=== PATIENT | female | born 1945 | race Caucasian/White ===

== ENCOUNTER → 2017-10-12 | Outpatient (CLI) | payer MEDICARE ==
--- NOTE | 2017-10-12 17:18 | Diagnostic Imaging Report ---
Exam: Cervical spine MRI without IV contrast History: Neck pain with left greater than right arm pain. Comparison studies: None Technique: Sagittal and axial T2 and T1, sagittal STIR and axial T2*GRE. Intravenous contrast: None Findings: Alignment: Normal cervical lordosis. Mild degenerative anterolisthesis of C4 on C5 and retrolisthesis of C5 on C6. Cervicomedullary junction: No abnormalities. Patent foramen magnum. Soft tissues: No T2 hyperintense inflammatory changes. Spinal cord: Normal in size and signal from the foramen magnum through T1. Vertebrae: No fractures, infection or neoplasm. Degenerative changes: C2-C3: Patent canal and foramina. Left facet arthrosis with facet fusion. C3-C4: Patent canal and foramina. Left facet arthrosis with facet fusion. C4-C5: Mildly degenerated disc with loss of disc height and loss of T2 disc signal. Mild anterolisthesis of C4 on C5 with associated disc osteophyte complex and thickened ligamentum flavum result in mild canal stenosis. Moderate left and mild right foraminal stenosis due to asymmetric left disc osteophyte complex, uncovertebral arthrosis and left facet arthrosis. C5-C6: Mildly degenerated disc with loss of disc height loss of T2 disc signal. Minimal retrolisthesis of C5 on C6 with associated disc osteophyte complex and thickened ligamentum flavum result in mild canal stenosis. Mild/moderate bilateral foraminal stenosis due to disc osteophyte complex, uncovertebral arthrosis and right facet arthrosis. C6-C7: Disc osteophyte complex asymmetric to the left and uncovertebral arthrosis result in mild left foraminal stenosis. No significant canal or right foraminal stenosis. C7-T1: Patent canal and foramina. IMPRESSION: 1. Mild disc degeneration with mild degenerative canal stenosis at C4-C5 and at C5-C6. 2. Small disc osteophyte complex at C6-C7 without significant canal stenosis. 3. Degenerative foraminal stenosis, moderate left at C4-C5 and mild/moderate bilaterally at C5-C6. 4. 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 Signed by: Dr. Jose Carlos Shelton M.D. on 10/12/2017 5:14 PM
== END ==
LOC: MRI 08:15
PROVIDERS: ATTEND Internal Medicine Cardiovascular Disease
DX: G43.909 Migraine, unspecified, not intractable, without status migrainosus (principal); R26.89 Other abnormalities of gait and mobility
CPT/HCPCS: 72141; 95812

== ENCOUNTER 2025-02-11 10:59 | Outpatient (RCR) | payer MEDICARE | END 2025-02-16 | LOC: PT 10:59 | PROVIDERS: ATTEND Neurological Surgery | DX: M47.896 Other spondylosis, lumbar region (principal) ==

== ENCOUNTER 2025-03-30 15:06 | Inpatient (IN) | payer MEDICARE ==
[2025-03-30] VITALS (9 sets, daily range): BP systolic 118–132; BP diastolic 54–58; PULSE 81–122; RESP 16–27; TEMP 97.8–98.4; O2SAT 96–98
[~2025-03-30] VITALS: Ht 162.6 cm; Wt 55.8 kg
[2025-03-30] MEDS ORDERED: SODIUM CHLORIDE FLUSH 10 ML SYR IV PRN (16:00)
[2025-03-30 16:07] LABS: BASOPHILS % 0.3 % (0.0-1.0); EOSINOPHILS % 0.0 % (0.0-6.0); LYMPHOCYTES % 4.3 % (18.0-39.1); MONOCYTES % 3.8 % (4.4-11.3); NEUTROPHILS % 91.0 % (38.7-80.0); RED CELL DISTRIBUTION WIDTH 13.4 % (11.7-14.4)
[2025-03-30] MEDS: DILTIAZEM HCL 5 MG/ML 5 ML VIAL IV STA (16:16)
[2025-03-30 16:25] LABS: EST GLOMERULAR FILTRATION RATE 73.0 ML/MIN (>=60)
[2025-03-30] MEDS ORDERED: DILTIAZEM HCL IV SCH (16:30)
[2025-03-30] MEDS ORDERED: DILTIAZEM HCL 125 ML IV SCH (16:30)
[2025-03-30] MEDS: DILTIAZEM HCL IV SOLN 125 MG in SODIUM CHLORIDE 0.9% 100 ML IV SCH (16:58)
[2025-03-30] MEDS: SODIUM CHLORIDE 0.9% 1000ML 1,000 ML IV ONE ×2 (16:59→18:05)
[2025-03-30] MEDS: ENOXAPARIN SOD INJ 40 MG/0.4 ML SYR SC SCH (16:59)
[2025-03-30] MEDS: MUPIROCIN 2% OINT 22 GM TUBE TOP SCH (17:15)
[2025-03-30] MEDS ORDERED: SODIUM CHLORIDE FLUSH 10 ML SYR INJ PRN (17:15)
[2025-03-30] MEDS ORDERED: AMIODARONE 900MG 900 MG in Premix Bag 1 BAG IV SCH (17:30)
[2025-03-30] MEDS: Vancomycin IV 1 GM in SODIUM CHLORIDE 0.9% 250ML 250 ML IV ONE (18:04)
[2025-03-30] MEDS: AMIODARONE HCL 150 MG/100 ML BAG IV ONE (18:05)
[2025-03-30] MEDS ORDERED: IOPAMIDOL 370 MG/ML 100 ML INFUS..BTL INJ ONE (18:36)
[2025-03-30] MEDS: AMIODARONE 900MG 500 ML IV SCH (18:46)
[2025-03-30] MEDS ORDERED: MAGNESIUM/ALUMINUM/SIMETHICONE 30 ML UDC PO PRN (22:30)
[2025-03-30] MEDS ORDERED: HYDRALAZINE HCL 20 MG/ML VIAL IV PRN (22:30)
[2025-03-30] MEDS ORDERED: MELATONIN 3 MG TAB PO PRN (22:30)
[2025-03-30] MEDS ORDERED: GUAIFENESIN/DEXTROMETHORPHAN LIQD 5 ML UDC PO PRN (22:30)
[2025-03-30] MEDS: METRONIDAZOLE 500MG/NS 100ML 100 ML IV SCH (23:14)
[2025-03-30] MEDS: CEFEPIME 1 GM in SODIUM CHLORIDE 0.9% 100 ML IV SCH (23:15)
[2025-03-30] MEDS: IPRATROPIUM BROMIDE 0.02% 2.5 ML NEB NEB SCH (23:26)
[2025-03-31] VITALS (27 sets, daily range): BP systolic 102–163; BP diastolic 52–72; PULSE 70–89; RESP 16–27; TEMP 97.7–98.4; O2SAT 96–100
[2025-03-31] MEDS: ZOLPIDEM TARTRATE 5 MG TAB PO PRN (00:09)
[2025-03-31 06:52] LABS: BASOPHILS % 0.1 % (0.0-1.0); EOSINOPHILS % 0.0 % (0.0-6.0); LYMPHOCYTES % 4.7 % (18.0-39.1); MONOCYTES % 3.5 % (4.4-11.3); NEUTROPHILS % 91.1 % (38.7-80.0); RED CELL DISTRIBUTION WIDTH 13.6 % (11.7-14.4)
[2025-03-31 07:32] LABS: HIV 1&2 AB SCREEN NON-REACTIVE (NONREACTIVE); HIV- 1 P24 AG SCREEN NON-REACTIVE (NONREACTIVE)
[2025-03-31 07:41] LABS: EST GLOMERULAR FILTRATION RATE 89.0 ML/MIN (>=60)
[2025-03-31] MEDS: THIAMINE HCL 100 MG TAB PO SCH (09:13)
[2025-03-31] MEDS: FOLIC ACID 1 MG TAB PO SCH (09:13)
[2025-03-31] MEDS: MULTIVITAMINS/MINERALS TAB PO SCH (09:13)
[2025-03-31] MEDS: TRAMADOL HCL 50 MG TAB PO PRN (09:38)
[2025-03-31] MEDS: AMIODARONE 900MG 500 ML IV ONE (20:54)
[2025-04-01] VITALS (26 sets, daily range): BP systolic 110–153; BP diastolic 59–96; PULSE 75–106; RESP 11–35; TEMP 97.6–98.2; O2SAT 91–98
[2025-04-01] MEDS: ACETAMINOPHEN 325 MG TAB PO PRN (13:10)
[2025-04-01] MEDS: ONDANSETRON HCL INJ 2MG/ML 2ML 2 MG/ML VIAL IV PRN (15:42)
[2025-04-01] MEDS: AMIODARONE HCL 200 MG TAB PO SCH (17:40)
[2025-04-01] MEDS ORDERED: IOPAMIDOL 370 MG/ML 100 ML INFUS..BTL INJ ONE (18:36)
[2025-04-02] VITALS (21 sets, daily range): BP systolic 96–134; BP diastolic 55–76; PULSE 52–121; RESP 14–27; TEMP 97.6–99.2; O2SAT 94–98
[2025-04-02 06:51] LABS: BASOPHILS % 0.1 % (0.0-1.0); EOSINOPHILS % 0.2 % (0.0-6.0); LYMPHOCYTES % 7.7 % (18.0-39.1); MONOCYTES % 2.9 % (4.4-11.3); NEUTROPHILS % 88.4 % (38.7-80.0); RED CELL DISTRIBUTION WIDTH 13.2 % (11.7-14.4)
[2025-04-02] MEDS: CEFEPIME 1 GM in SODIUM CHLORIDE 0.9% 100 ML IV SCH (08:14)
[2025-04-02 08:45] LABS: EST GLOMERULAR FILTRATION RATE 91.0 ML/MIN (>=60)
[2025-04-02] MEDS: DIGOXIN INJ 0.25 MG/ML 2 ML AMP IV ONE ×2 (09:55→16:10)
[2025-04-02] MEDS: AMIODARONE 900MG 500 ML IV SCH (10:00)
[2025-04-02] MEDS: METOPROLOL TARTRATE 25 MG TAB PO SCH (11:15)
[2025-04-02] MEDS: METOPROLOL TARTRATE INJ 1 MG/ML VIAL IV PRN (11:23)
[2025-04-02 15:13] LABS: cANCA TITER <1:20 titer (Neg:<1:20)
[2025-04-02] MEDS ORDERED: ENOXAPARIN 30 MG/0.3 ML SYR SC SCH (16:45)
[2025-04-02 19:11] LABS: MYELOPEROXIDASE AB (MPO) <0.2 units (0.0-0.9)
[2025-04-02 19:28] LABS: ATYPICAL pANCA TITER <1:20 titer (Neg:<1:20); PROTEINASE-3 ANTIBODY <0.2 units (0.0-0.9); pANCA TITER <1:20 titer (Neg:<1:20)
[2025-04-02 21:45] LABS: LEUKOCYTE ESTERASE ,URINE NEGATIVE (NEGATIVE); PROTEIN,URINE DIPSTICK 1+ (NEGATIVE); URINE UROBILINOGEN 0.2 mg/dL (0.2 - 1)
[2025-04-02 21:48] LABS: EPITHELIAL CELLS,URINE FEW /LPF
[2025-04-02 22:16] LABS: CREATININE,URINE RANDOM 68.62 mg/dL (47-110)
[2025-04-02] MEDS: METOCLOPRAMIDE HCL 10 MG/2ML VIAL IV SCH (23:13)
[2025-04-03] VITALS (28 sets, daily range): BP systolic 81–141; BP diastolic 53–85; PULSE 64–99; RESP 12–23; TEMP 97.4–100.2; O2SAT 88–100
[2025-04-03 06:30] LABS: BASOPHILS % 0.3 % (0.0-1.0); EOSINOPHILS % 0.1 % (0.0-6.0); LYMPHOCYTES % 7.1 % (18.0-39.1); MONOCYTES % 2.4 % (4.4-11.3); NEUTROPHILS % 89.4 % (38.7-80.0); RED CELL DISTRIBUTION WIDTH 13.5 % (11.7-14.4)
[2025-04-03 07:21] LABS: EST GLOMERULAR FILTRATION RATE 89.0 ML/MIN (>=60)
[2025-04-03] MEDS ORDERED: LIDOCAINE HCL 2% LOCAL INJ 5 ML SDV VIAL INJ ONE (07:21)
[2025-04-03] MEDS ORDERED: DEXAMETHASONE SOD PHOS INJ 4 MG/ML SDV ONE (07:21)
[2025-04-03] MEDS ORDERED: SUCCINYLCHOLINE CHLORIDE 20 MG/ML 10ML VIAL ONE (07:21)
[2025-04-03] MEDS ORDERED: PROPOFOL IV EMULSION 50 ML IV ONE (07:21)
[2025-04-03] MEDS ORDERED: PROPOFOL IV EMULSION 10 MG/ML 20 ML VIAL ONE (07:21)
[2025-04-03] MEDS ORDERED: ROCURONIUM BROMIDE 0 ML IV ONE (07:21)
[2025-04-03] MEDS ORDERED: ONDANSETRON HCL INJ 2MG/ML 2ML 2 MG/ML VIAL ONE (07:21)
[2025-04-03] MEDS ORDERED: FENTANYL CITRATE/PF 100MCG/2 ML INJ ONE (07:21)
[2025-04-03] MEDS ORDERED: SEVOFLURANE INHAL SOLN 250 ML PEN BTL ONE (07:21)
[2025-04-03] MEDS: COLLAGENASE OINTMENT 30 GM TUBE TP SCH (09:48)
[2025-04-03] MEDS: SODIUM CHLORIDE 0.9% 1000ML 1,000 ML IV ONE (09:52)
[2025-04-03] MEDS: TRAMADOL HCL 50 MG TAB PO PRN (12:56)
[2025-04-03] MEDS: SODIUM CHLORIDE 1 GM TAB PO ONE (20:26)
[2025-04-04] VITALS (20 sets, daily range): BP systolic 95–130; BP diastolic 58–105; PULSE 64–85; RESP 9–22; TEMP 97.9–98.9; O2SAT 95–100
[2025-04-04 06:11] LABS: BASOPHILS % 0.1 % (0.0-1.0); EOSINOPHILS % 0.0 % (0.0-6.0); LYMPHOCYTES % 7.2 % (18.0-39.1); MONOCYTES % 2.8 % (4.4-11.3); NEUTROPHILS % 89.2 % (38.7-80.0); RED CELL DISTRIBUTION WIDTH 13.4 % (11.7-14.4)
[2025-04-04 07:38] LABS: EST GLOMERULAR FILTRATION RATE 89.0 ML/MIN (>=60)
[2025-04-04] MEDS: SODIUM CHLORIDE 1 GM TAB PO SCH (12:40)
[2025-04-04] MEDS: AMIODARONE HCL 200 MG TAB PO SCH (13:45)
[2025-04-04 14:12] LABS: ASPERGILLUS FLAVUS AB Negative (Neg:<1:1); ASPERGILLUS FUMIG AB Negative (Neg:<1:1)
[2025-04-04 15:23] LABS: ASPERGILLUS NIGER AB Negative (Neg:<1:1)
[2025-04-04 15:23] LABS: OSMOLALITY,SERUM OSMOMETER 262 mOsmol/kg (280-301); OSMOLALITY,URINE 637 mOsmol/kg (.)
[2025-04-04] MEDS: SODIUM CHLORIDE 0.9% 1000ML 1,000 ML IV SCH (20:37)
[2025-04-05] VITALS (19 sets, daily range): BP systolic 117–146; BP diastolic 58–91; PULSE 71–103; RESP 18–22; TEMP 97.4–97.8; O2SAT 92–98
[2025-04-05 12:34] LABS: BASOPHILS % 0.1 % (0.0-1.0); EOSINOPHILS % 0.1 % (0.0-6.0); LYMPHOCYTES % 7.6 % (18.0-39.1); MONOCYTES % 3.2 % (4.4-11.3); NEUTROPHILS % 88.0 % (38.7-80.0); RED CELL DISTRIBUTION WIDTH 14.5 % (11.7-14.4)
[2025-04-05 12:53] LABS: EST GLOMERULAR FILTRATION RATE 91.0 ML/MIN (>=60)
[2025-04-05] MEDS: SODIUM CHLORIDE 0.9% 1000ML 1,000 ML IV SCH (14:25)
[2025-04-05] MEDS: PREGABALIN 25 MG CAP PO PRN (23:18)
[2025-04-06] VITALS (22 sets, daily range): BP systolic 115–136; BP diastolic 58–103; PULSE 70–86; RESP 14–23; TEMP 97.6–97.8; O2SAT 95–98
[2025-04-06 03:52] LABS: BASOPHILS % 0.1 % (0.0-1.0); EOSINOPHILS % 0.2 % (0.0-6.0); LYMPHOCYTES % 9.1 % (18.0-39.1); MONOCYTES % 3.4 % (4.4-11.3); NEUTROPHILS % 86.4 % (38.7-80.0); RED CELL DISTRIBUTION WIDTH 14.6 % (11.7-14.4)
[2025-04-06 04:03] LABS: EST GLOMERULAR FILTRATION RATE 92.0 ML/MIN (>=60)
[2025-04-06] MEDS: FUROSEMIDE INJ 10 MG/ML 4 ML VIAL IV ONE (16:51)
[2025-04-06] MEDS: FUROSEMIDE INJ 10 MG/ML 2 ML VIAL IV ONE (20:32)
[2025-04-07] VITALS (13 sets, daily range): BP systolic 100–134; BP diastolic 53–103; PULSE 72–86; RESP 15–21; TEMP 97.7; O2SAT 95–99
[2025-04-07 07:04] LABS: EST GLOMERULAR FILTRATION RATE 92.0 ML/MIN (>=60)
[2025-04-07] MEDS: POTASSIUM CHLORIDE 10MEQ/100ML 100 ML IV SCH (10:17)
[2025-04-07] MEDS: TOLVAPTAN 15 MG TAB PO ONE (16:44)
[2025-04-07] MEDS: CEFEPIME 1 GM in SODIUM CHLORIDE 0.9% 100 ML IV SCH (20:55)
[2025-04-07] MEDS: ZOLPIDEM TARTRATE 5 MG TAB PO PRN (23:48)
[2025-04-08] VITALS (13 sets, daily range): BP systolic 92–122; BP diastolic 67–78; PULSE 79–99; RESP 16–25; TEMP 97.5–98.8; O2SAT 94–98
[2025-04-08 12:24] LABS: EST GLOMERULAR FILTRATION RATE 88.0 ML/MIN (>=60)
[2025-04-08] MEDS: SODIUM CHLORIDE 1 GM TAB PO SCH (12:27)
[2025-04-09] VITALS (13 sets, daily range): BP systolic 101–118; BP diastolic 57–71; PULSE 72–106; RESP 16–18; TEMP 97.6–98.5; O2SAT 95–100
[2025-04-09 06:11] LABS: BASOPHILS % 0.3 % (0.0-1.0); EOSINOPHILS % 0.3 % (0.0-6.0); LYMPHOCYTES % 17.5 % (18.0-39.1); MONOCYTES % 3.7 % (4.4-11.3); NEUTROPHILS % 77.3 % (38.7-80.0); RED CELL DISTRIBUTION WIDTH 16.4 % (11.7-14.4)
[2025-04-09 06:36] LABS: EST GLOMERULAR FILTRATION RATE 92.0 ML/MIN (>=60)
[2025-04-09] MEDS: NYSTATIN SUSPENSION 5 ML UDC PO SCH (20:46)
[2025-04-10] VITALS (13 sets, daily range): BP systolic 109–128; BP diastolic 63–78; PULSE 75–107; RESP 16–20; TEMP 97.3–98.2; O2SAT 95–100
[2025-04-10 06:32] LABS: BASOPHILS % 0.4 % (0.0-1.0); EOSINOPHILS % 0.1 % (0.0-6.0); LYMPHOCYTES % 19.5 % (18.0-39.1); MONOCYTES % 5.5 % (4.4-11.3); NEUTROPHILS % 73.8 % (38.7-80.0); RED CELL DISTRIBUTION WIDTH 16.9 % (11.7-14.4)
[2025-04-10 07:02] LABS: EST GLOMERULAR FILTRATION RATE 91.0 ML/MIN (>=60)
[2025-04-10] MEDS: FLUCONAZOLE 100 MG TAB PO SCH (08:43)
[2025-04-10] MEDS: DOCUSATE SODIUM 100 MG CAP PO PRN (08:56)
[2025-04-11] VITALS (7 sets, daily range): BP systolic 100–130; BP diastolic 69–74; PULSE 72–93; RESP 16–18; TEMP 97.4–98.1; O2SAT 94–99
[2025-04-11 06:26] LABS: BASOPHILS % 0.1 % (0.0-1.0); EOSINOPHILS % 0.2 % (0.0-6.0); LYMPHOCYTES % 21.9 % (18.0-39.1); MONOCYTES % 5.2 % (4.4-11.3); NEUTROPHILS % 71.9 % (38.7-80.0); RED CELL DISTRIBUTION WIDTH 17.2 % (11.7-14.4)
[2025-04-11 06:52] LABS: EST GLOMERULAR FILTRATION RATE 89.0 ML/MIN (>=60)
== END 2025-04-11 15:20 | DRG 871 ==
LOC: ER 15:44 → ERHOLD 17:08 → ICU 20:34 → MED/SURG3 04-08 16:12
PROVIDERS: ADMIT Family Medicine; ATTEND Family Medicine
PROC: 3E0333Z Introduction of Anti-inflammatory into Peripheral Vein, Percutaneous Approach (ICD-10-PCS; 2025-03-30)
PROC: 0BDG8ZX Extraction of Left Upper Lung Lobe, Via Natural or Artificial Opening Endoscopic, Diagnostic (ICD-10-PCS; 2025-04-03)
PROC: 0BDC8ZX Extraction of Right Upper Lung Lobe, Via Natural or Artificial Opening Endoscopic, Diagnostic (ICD-10-PCS; principal; 2025-04-03 07:53)
PROC: 02HV33Z Insertion of Infusion Device into Superior Vena Cava, Percutaneous Approach (ICD-10-PCS; 2025-04-07)
DX: A41.50 Gram-negative sepsis, unspecified (principal); E43 Unspecified severe protein-calorie malnutrition; J15.69 Pneumonia due to other Gram-negative bacteria; E22.2 Syndrome of inappropriate secretion of antidiuretic hormone; Z68.1 Body mass index [BMI] 19.9 or less, adult; J44.0 Chronic obstructive pulmonary disease with (acute) lower respiratory infection; R62.7 Adult failure to thrive; I10 Essential (primary) hypertension; I48.0 Paroxysmal atrial fibrillation; E78.5 Hyperlipidemia, unspecified; D64.9 Anemia, unspecified; J47.9 Bronchiectasis, uncomplicated; K21.9 Gastro-esophageal reflux disease without esophagitis; R91.8 Other nonspecific abnormal finding of lung field; R79.89 Other specified abnormal findings of blood chemistry; R53.81 Other malaise; R53.82 Chronic fatigue, unspecified; M54.9 Dorsalgia, unspecified; Z86.73 Personal history of transient ischemic attack (TIA), and cerebral infarction without residual deficits; Z90.721 Acquired absence of ovaries, unilateral; Z90.49 Acquired absence of other specified parts of digestive tract; Z88.5 Allergy status to narcotic agent; Z82.49 Family history of ischemic heart disease and other diseases of the circulatory system
CPT/HCPCS: 31622; 36415; 71045; 71260; 74177; 80048; 80053; 81001; 82550; 82570; 83605; 83880; 83930; 83935; 84295; 84300; 84484; 84630; 85025; 86021; 86606; 86635; 87040; 87070; 87081; 87086; 87102; 87116; 87186; 87205; 87206; 87335; 87390; 93005; 93306; 94640; 94760; 94799; 99252; 99284; G0433; G0435; J0330; J0692; J1100; J1160; J1650; J1938; J2003; J2405; J2765; J3373; J3411; J3480; J7030; J7050; Q9967